=== PATIENT | female | born 2000 | race Caucasian/White ===

== ENCOUNTER 2023-12-12 07:24 | Inpatient (IN) | payer MEDICAID, SELFPAY ==
[2023-12-12] VITALS (35 sets, daily range): BP systolic 99–139; BP diastolic 54–95; PULSE 53–82; BMI 32.8
[2023-12-12 08:10] LABS: Basophils % 0.3 %; Eosinophils # 0.1 10^3/uL (0.0-0.8); Eosinophils % 0.6 %; Lymphocytes # 2.7 10^3/uL (0.8-4.8); Lymphocytes % 23.7 %; Mean Corpuscular HGB Conc 30.7 g/dL (30-55); Mean Corpuscular Hemoglobin 23.4 pg (27-33); Mean Corpuscular Volume 76.3 fl (85-98); Mean Platelet Volume 10.8 fL (7.4-10.4); Monocytes # 0.6 10^3/uL (0.2-0.9); Monocytes % 4.9 %; Neutrophils # 7.91 10^3/uL (1.8-7.7); Neutrophils % 70.1 %; Nucleated Red Blood Cells % 0 %; Platelet Count 248 10^3/cmm (157-399); Red Blood Count 3.67 10^6/uL (3.85-5.65); White Blood Count 11.28 10^3/uL (3.29-11.43)
[2023-12-12] MEDS: miSOPROStol 100 mcg tablet 25 MCG VAGINAL (08:22)
--- NOTE | 2023-12-12 09:10 | PM.OBGYHP ---
Providers/Chief Complaint Admitting Physician: Desmond Jacobsen MD Primary AIRPORT TOWER CONTROLLER: Desmond Jacobsen MD Primary Care Provider: Bonita Eaton MD Chief Complaint: induction HPI AIRPORT TOWER CONTROLLER History of Present Illness 23 y.o. A2 EDC December 19, 2023 at 39 w 0 d no complications admitted for elective induction of labor no c/o + active movements pobhx: x one IUFD mono/mono twins at 12 weeks, November 2022 Failed Cytotec induction, required D&C Present Details : 3 Para: 1 Labs Rubella: Immune RPR: Negative GBS: Positive Medications/Allergies Home Medications Medication Instructions Recorded Confirmed Last Taken Type famotidine 20 mg tablet 20 mg PO BID PRN heartburn #30 tabs 10/23/23 12/09/23 11/21/23 Rx Allergies Allergy/AdvReac Type Severity Reaction Status Date / Time aspirin Allergy Unknown Verified 12/09/23 13:57 lactose Allergy upset Verified 12/09/23 13:57 stomach, diarrhea, vomiting PFSH AIRPORT TOWER CONTROLLER PFSH: Medical History No pertinent past medical history neghx: htn,dm,thyroid,dvt/pe,herpes ---denies partner with herpes Surgical History No pertinent past surgical history Family History Family/Other Colon cancer Maternal Aunt-- dx age unknown Grandmother Diabetes Maternal Hypertension Paternal Mother Ovarian cancer dx age late 20's; uncertain of events History History History 3 Term 1 0 Miscarriages/Ectopic 2 Living Children 1 Care BIGG Calculator Estimated Delivery Date Method Current WG Current Estimate 12/19/23 Ultrasound #1 39w 0d Other Estimates 12/21/23 Ultrasound #2 38w 5d Vitals/I&O/Wt Last Vital Signs Pulse 65 12/12/23 17:09 BP 125/81 12/12/23 17:09 O2 Del Method Room Air 12/12/23 07:00 12/12/23 12/12/23 12/12/23 06:59 14:59 22:59 Intake Total 53.017 / 53.017 4.667 / 57.684 Balance 53.017 / 53.017 4.667 / 57.684 Weight last 48 hrs Weight 197 lb Physical Exam Narrative: weight 195 lbs; 5?5 comfortable, awake, alert VS normal Lungs: clear Cor: RRR Abd: nontender FH 37 cm, cephalic FHTs normal Cervix: 1 cm / 25% / -3 / posterior Ext: no edema External monitor: heart tracing good variability, + accelerations Data 12/12/23 07:45 Results Labs OB ([facility]): Obstetrics US 12/02/23 Obstetrics US/Biophysical Profile 01/10/21 Blood Type AB Positive 12/12/23 Antibody Screen Negative 12/12/23 Hct 28.0 % (36-47) L 12/12/23 Hgb 8.60 g/dL (11.27-16.99) L 12/12/23 Rho(D) Type Rh positive 12/12/23 Plt Count 248 10^3/cmm (157-399) 12/12/23 Hep Bs Antigen Non-reactive (Nonreactive) 05/27/23 Hepatitis C Antibody Non-reactive (Nonreactive) 05/27/23 Rubella IgG Antibody 34.0 IU/mL (0.0-10.0) H 05/27/23 RPR Nonreactive (Nonreactive) 05/27/23 HIV 1&2 Ab & HIV 1 Ag Non-reactive (Non-Reactiv) 05/27/23 TSH 0.19 uIU/mL (0.27-4.20) L 11/21/22 C.trachomatis RNA (TMA) Not detected (NOT DETECTED) 09/17/23 N.gonorrhoeae RNA (TMA) Not detected (NOT DETECTED) 09/17/23 Chlamydia/GC Comment See note 09/17/23 Cystic Fibrosis Screen Negative 08/04/20 Glucose 1 Hr 50 gm 90 mg/dL (85-140) 10/02/23 Gest Glucose Tolerance 78 mg/dL 12/08/20 Uric Acid 5.3 mg/dL (2.4-5.7) 03/07/21 Ser , Semi-Qnt 1008.00 mIU/mL 04/18/23 HCG, Qual Positive (Negative) H 04/18/23 Urine Opiates Screen Negative ng/mL (Negative) 05/27/23 Ur Barbiturates Screen Negative ng/mL (Negative) 05/27/23 Ur Phencyclidine Scrn Negative ng/mL (Negative) 05/27/23 Ur Amphetamines Screen Negative ng/mL (Negative) 05/27/23 U Benzodiazepines Scrn Negative ng/mL (Negative) 05/27/23 Urine Cocaine Screen Negative ng/mL (Negative) 05/27/23 U Marijuana (THC) Screen Negative ng/mL (Negative) 05/27/23 Micro Urine Specimen 11/11/23 A&P Assessment and plan (1) Encounter for induction of labor: 39 w 0 d Admitted for elective induction of labor Fetus reassuring Plan Cytotec 25 ug intravaginal h/o x one (2) Group B streptococcal bacteriuria: plan start antibiotics for + GBS colonization Attestations Medical Necessity Statement*: patient at 39 w 0d, admitted for induction of labor Coding Level of Care Code Acute Code for Chg Fwd Diagnoses Encounter for induction of labor Z34.90 Group B streptococcal bacteriuria R82.71 Time Spent (min) 30
--- NOTE | 2023-12-12 12:20 | P.PN_ITS ---
PRODUCT PROMOTER SALES PERSON Subjective 2 Subjective: Interval history: Feeling mild UCs Fetus reassuring Cervix: 1 cm / 50% / -3 / posterior Plan start Pitocin per protocol Labor: Station: -3 Amniotic Membrane Status: Intact Monitor Mode: External Contraction Pattern: Regular Vitals/I&O/Wt Last Vital Signs Pulse 60 12/12/23 17:38 BP 114/73 12/12/23 17:38 O2 Del Method Room Air 12/12/23 07:00 12/12/23 12/12/23 12/12/23 06:59 14:59 22:59 Intake Total 53.017 / 53.017 4.667 / 57.684 Balance 53.017 / 53.017 4.667 / 57.684 Weight last 48 hrs Weight 197 lb Data 12/12/23 07:45 A&P Assessment and plan (1) Encounter for induction of labor: (2) Group B streptococcal bacteriuria: Attestations 2 Medical Necessity Statement*: patient at 39 w 0 d, admitted for induction of labor Coding Level of Care Code Acute Code for Chg Fwd Diagnoses Encounter for induction of labor Z34.90 Group B streptococcal bacteriuria R82.71 Time Spent (min) 20
[2023-12-12] MEDS: ampicillin 2,000 MG in sodium chloride 0.9% (plus) 50 ML 100 MG IV (12:36)
[2023-12-12] MEDS: dextrose 5%-lactated ringers 1,000 ML 125 ML IV (12:38)
[2023-12-12] MEDS: oxytocin 30 UNIT/500 ML BAG IV (13:09)
[2023-12-12] MEDS: ampicillin 1,000 MG in sodium chloride 0.9% (plus) 50 ML 100 MG IV ×2 (16:26→21:09)
[2023-12-12] MEDS: acetaminophen 325 mg Tablet 650 MG PO (16:39)
[2023-12-12] MEDS: dextrose 5%-lactated ringers 1,000 ML 112 ML IV (21:42)
[2023-12-13] VITALS (47 sets, daily range): BP systolic 101–141; BP diastolic 51–92; PULSE 54–94; RESP 14–16; TEMP 36.4–36.8; O2SAT 83–100; BMI 32.8
[2023-12-13] MEDS: acetaminophen 325 mg Tablet 650 MG PO ×2 (00:28→13:00)
[2023-12-13] MEDS: ampicillin 1,000 MG in sodium chloride 0.9% (plus) 50 ML 100 MG IV ×2 (00:29→04:41)
[2023-12-13] MEDS: ondansetron 2 mg/ML SDV 2 mL 4 MG IVP (01:08)
[2023-12-13] MEDS: lactated ringers 1,000 ML 999 ML IV (03:18)
--- NOTE | 2023-12-13 03:31 | P.ANESASSM_ITS ---
Pre-Anesthetic Assessment Height/Weight: Height 1.65 m Weight 89.358 kg Pulse BP Pulse Ox O2 Del Method 73 134/85 100 Room Air 12/13/23 03:27 12/13/23 03:25 12/13/23 03:27 12/12/23 07:00 Preop Diagnosis: Term labor NAVEEN Was Beta Ed taken within 24 hours: N/A Was Clonidine taken within 24 hours: N/A Social No alcohol and No tobacco Exam alert, oriented x 3, clear to auscultation bilaterally and regular rate & rhythm Airway Submandibular: within normal limits Cervical ROM: within normal limits Mallampati: Class II Dentition: full History/ROS No significant history except as noted and No significant complaints Pulmonary None reported CV/HEM Anemia None reported Hepatic None reported GI None reported Metabolic None reported Musc/skel None reported Neuropsych None reported Anesthetic Plan ASA status: 2 Anesthesia: Anesthesia Evaluation and Regional (specify below) (NAVEEN) Risk of > 500 ml blood loss (7ml/kg in children): No Medications/Allergies Home Medications Medication Instructions Recorded Confirmed Last Taken Type famotidine 20 mg tablet 20 mg PO BID PRN heartburn #30 tabs 10/23/23 12/09/23 11/21/23 Rx Allergies Allergy/AdvReac Type Severity Reaction Status Date / Time aspirin Allergy Unknown Verified 12/09/23 13:57 lactose Allergy upset Verified 12/09/23 13:57 stomach, diarrhea, vomiting Current Medications Generic Name Dose Route Start Last Admin Trade Name Freq PRN Reason Stop Dose Admin Acetaminophen 650 mg 12/12/23 07:55 12/13/23 00:28 Acetaminophen 325 Mg Tablet PO 650 mg Q6H PRN Administration Mild pain or temp > 100.4 Dextrose/Lactated Ringer's 1,000 mls @ 125 mls/hr 12/12/23 08:00 12/13/23 02:00 Dextrose 5%-Lactated Ringers IV 125 mls/hr .Q8H YOVANA Infusion Ampicillin Sodium 1,000 mg/ 50 mls @ 100 mls/hr 12/12/23 16:30 12/13/23 00:59 Sodium Chloride IV Infused Q4H YOVANA Infusion Protocol Oxytocin 30 unit in 500 mls @ 1 mls/hr 12/12/23 12:30 12/12/23 23:48 Pitocin IV 17 milliunit/min .Q24H YOVANA 17 mls/hr Titration Protocol 1 MILLIUNIT/MIN Ondansetron HCl 4 mg 12/12/23 07:55 12/13/23 01:08 Ondansetron 2 Mg/Ml Sdv 2 Ml IVP 4 mg Q4H PRN Administration NAUSEA AND VOMITING PFSH Anesthesia Medical History No pertinent past medical history neghx: htn,dm,thyroid,dvt/pe,herpes ---denies partner with herpes Surgical History No pertinent past surgical history Family History Family/Other Colon cancer Maternal Aunt-- dx age unknown Grandmother Diabetes Maternal Hypertension Paternal Mother Ovarian cancer dx age late 20's; uncertain of events Female Reproductive History : 3 Para: 0 Data Anesthesia 12/12/23 07:45 Short CBC 12/12/23 Range/Units 07:45 WBC 11.28 (3.29-11.43) 10^3/uL Hgb 8.60 L (11.27-16.99) g/dL Hct 28.0 L (36-47) % MCV 76.3 L (85-98) fl Plt Count 248 (157-399) 10^3/cmm Neut % (Auto) 70.1 % Neut # (Auto) 7.91 H (1.8-7.7) 10^3/uL Blood Bank 12/12/23 07:45 Blood Type AB Positive Rho(D) Type Rh positive Antibody Screen Negative Cardiac Studies: 2 No Data to Display
--- NOTE | 2023-12-13 03:36 | ANES.PROC ---
Anesthesia Procedures Procedure/Date: 12/13/23 Epidural: Time Out Performed: Yes Consents Signed: Procedure Consent Consent: requested by attending/covering physician, from patient, risks and benefits reviewed and patient agrees to proceed Lumbar Level: L2-L3 Epidural position: sitting Epidural procedure: sterile prep of area, 1% lidocaine to numb the area, 18 g needle, negative for paresthesia passed, neg for paresthesia, test dose given, 1.5% xylocaine 1:200k epi (5cc), 0.2% Ropivacaine bolus ml (4cc and Fentanyl 100mcg), placed PCEA, no systemic response, sterile dressing applied, L.U.D. no apparent complications and 0.2% Ropiavacaine @ mls/hr (10cc/hour) Other Information: Pt tolerated well
[2023-12-13] MEDS: ROPivacaine syringe 100 MG/50 ML SYRINGE 10 MG EPIDURAL (03:41)
--- NOTE | 2023-12-13 05:20 | PM.DELIVERY ---
Delivery Note: Date of delivery: December 13, 2023 Pre-delivery diagnoses: 39 w 0 d induction of labor Post-delivery diagnoses: 39 w 0 d induction of labor vaginal delivery Procedure: induction of labor vaginal delivery Op report anesthesia: Epidural Delivering Physician: Desmond Jacobsen MD Estimated blood loss (mL): 400 Findings: , vigorous male cord gases and blood obtained normal placenta and cord no episiotomy or lacerations no complications EBL: 400 cc Pre-Delivery Course: patient received one dose of cytotec 25 ug intravaginally then pitocin per protocol had normal labor course Delivery: vaginal Post-Delivery Status: Good History History History 3 Term 1 0 Miscarriages/Ectopic 2 Living Children 1 A&P Assessment and plan (1) Vaginal delivery: Coding Level of Care Code Acute Code for Chg Fwd Diagnoses Vaginal delivery O80 Time Spent (min) 60
[2023-12-13] MEDS: oxytocin 30 UNIT/500 ML BAG 300 UNIT IV (06:05)
[2023-12-13] MEDS: hyDROXYzine 25 mg Capsule 50 MG PO (08:19)
[2023-12-13] MEDS: lanolin oint 7 gm 1 APPLIC TOPICAL (08:29)
[2023-12-13] MEDS: docusate sodium 100 mg Capsule PO ×2 (08:30→20:14)
[2023-12-13] MEDS: PRENATAL VIT NO.130/IRON/FOLIC 1 EACH TABLET PO (08:30)
[2023-12-13] MEDS: ibuprofen 800 mg tablet PO ×3 (08:30→20:14)
[2023-12-13 17:31] LABS: Hematocrit 23.1 % (36-47); Mean Corpuscular HGB Conc 31.2 g/dL (30-55); Mean Corpuscular Hemoglobin 23.9 pg (27-33); Mean Corpuscular Volume 76.7 fl (85-98); Mean Platelet Volume 10.5 fL (7.4-10.4); Platelet Count 197 10^3/cmm (157-399); Red Blood Count 3.01 10^6/uL (3.85-5.65); Red Cell Distribution Width 15.9 % (12.1-15.1); White Blood Count 10.82 10^3/uL (3.29-11.43)
--- NOTE | 2023-12-14 07:00 | ANE.PACU2 ---
Inpatient post-anesthesia follow up: Airway intact: Yes Vital signs: Temperature 98.2 F Pulse Rate 81 Respiratory Rate 17 Blood Pressure 127/78 Pulse Oximetry 99 Oxygen Delivery Me thod Room Air Oxygen Flow Rate Fraction of Inspir ed Oxygen Hydration adequate: Yes Nausea and vomiting: No Pain level: 1 Mental status: Baseline Epidural Start/End: Epidural Start Date: 12/13/23 Epidural Start Time: 03:09 Epidural End Date: 12/13/23 Epidural End Time: 05:50
[2023-12-14 09:16] VITALS: BP 116/72; PULSE 81; RESP 16; TEMP 36.8
[2023-12-14] MEDS: PRENATAL VIT NO.130/IRON/FOLIC 1 EACH TABLET PO (09:17)
[2023-12-14] MEDS: docusate sodium 100 mg Capsule PO (09:17)
[2023-12-14] MEDS: ibuprofen 800 mg tablet PO (09:17)
--- NOTE | 2023-12-14 13:04 | PM.OBGYDC ---
Discharge Providers RESTAURANT SERVER Date of Admission: 12/12/23 07:24 Date of Discharge: 12/14/23 Attending Provider at Admission: Desmond Jacobsen MD Attending Provider at Discharge: Ace Mauricio MD Primary RESTAURANT SERVER: Desmond Jacobsen MD Primary Care Provider: Bonita Eaton MD Diagnoses at Discharge Discharge Diagnosis (1) Vaginal delivery: Status: Acute Reason for Visit Reason for Visit: induction Hospital Course Hospital Course Ms. Smith is a 23 year old established patient with LMP of unknown, BIGG 12/19/23. Admitted to labor and delivery for elective induction. She progressed to have a spontaneous vaginal delivery without complications. She is ambulating without difficulty. Tolerating diet well. Patient refers she is planning a bilateral salpingectomy for contraception. She was advised to go to the clinic to schedule for the procedure. She was counseled regarding pelvic rest for 6 weeks (no sex, no tampons, no vaginal douches). Return to the emergency room if any fever, increased bleeding or pain. Information Peripartum Data: Infant Delivery Method: Vaginal Physical Exam Narrative: GA; alert and oriented x 3 HEENT: normal Breasts: engorged Nipples - skin intact Lungs; clear to auscultation Heart: regular rhythm, no murmurs. Abd: Appropriately tender. BS+. Uterine fundus below umbilicus. No Fundal Tenderness. Perineum: normal lochia. Extremities: no edema, no cyanosis, no tenderness. Urinary Catheter Management: Dougherty: Cath Placed During This Visit: yes, but has since been removed by the nurse Reason for Continuing Indwelling Catheter: Decision to DC Catheter Urinary Catheter Date of Insertion: 12/13/23 Urinary Catheter Time of Insertion: 04:02 Date Urinary Catheter Removed: 12/13/23 Time Urinary Catheter Discontinued: 05:10 History History History 3 Term 1 0 Miscarriages/Ectopic 2 Living Children 1 Discharge Data Studies Completed and Pending Laboratory Results WBC 10.82 10^3/uL (3.29-11.43) 12/13/23 17:21 RBC 3.01 10^6/uL (3.85-5.65) L 12/13/23 17:21 Hgb 7.20 g/dL (11.27-16.99) L 12/13/23 17:21 Hct 23.1 % (36-47) L 12/13/23 17:21 MCV 76.7 fl (85-98) L 12/13/23 17:21 MCH 23.9 pg (27-33) L 12/13/23 17:21 MCHC 31.2 g/dL (30-55) 12/13/23 17:21 RDW 15.9 % (12.1-15.1) H 12/13/23 17:21 Plt Count 197 10^3/cmm (157-399) 12/13/23 17:21 MPV 10.5 fL (7.4-10.4) H 12/13/23 17:21 Neut % (Auto) 70.1 % 12/12/23 07:45 Lymph % (Auto) 23.7 % 12/12/23 07:45 Glenn % (Auto) 4.9 % 12/12/23 07:45 Eos % (Auto) 0.6 % 12/12/23 07:45 Baso % (Auto) 0.3 % 12/12/23 07:45 Neut # (Auto) 7.91 10^3/uL (1.8-7.7) H 12/12/23 07:45 Lymph # (Auto) 2.7 10^3/uL (0.8-4.8) 12/12/23 07:45 Glenn # (Auto) 0.6 10^3/uL (0.2-0.9) 12/12/23 07:45 Eos # (Auto) 0.1 10^3/uL (0.0-0.8) 12/12/23 07:45 Baso # (Auto) 0.0 10^3/uL (0.0-0.1) 12/12/23 07:45 Nucleated RBC % (auto) 0 % 12/12/23 07:45 Nucleated RBCs # 0.0 /100WBC 12/12/23 07:45 Blood Type AB Positive 12/12/23 07:45 Rho(D) Type Rh positive 12/12/23 07:45 Antibody Screen Negative 12/12/23 07:45 Vitals Last Vital Signs Temp 98.2 F 12/14/23 09:16 Pulse 81 12/14/23 09:16 Resp 16 12/14/23 09:16 BP 116/72 12/14/23 09:16 Pulse Ox 99 12/13/23 22:06 O2 Del Method Room Air 12/14/23 09:16 Results Labs OB ([facility]): Obstetrics US 12/02/23 Obstetrics US/Biophysical Profile 01/10/21 Blood Type AB Positive 12/12/23 Antibody Screen Negative 12/12/23 Hct 23.1 % (36-47) L 12/13/23 Hgb 7.20 g/dL (11.27-16.99) L 12/13/23 Rho(D) Type Rh positive 12/12/23 Plt Count 197 10^3/cmm (157-399) 12/13/23 Hep Bs Antigen Non-reactive (Nonreactive) 05/27/23 Hepatitis C Antibody Non-reactive (Nonreactive) 05/27/23 Rubella IgG Antibody 34.0 IU/mL (0.0-10.0) H 05/27/23 RPR Nonreactive (Nonreactive) 05/27/23 HIV 1&2 Ab & HIV 1 Ag Non-reactive (Non-Reactiv) 05/27/23 TSH 0.19 uIU/mL (0.27-4.20) L 11/21/22 C.trachomatis RNA (TMA) Not detected (NOT DETECTED) 09/17/23 N.gonorrhoeae RNA (TMA) Not detected (NOT DETECTED) 09/17/23 Chlamydia/GC Comment See note 09/17/23 Cystic Fibrosis Screen Negative 08/04/20 Glucose 1 Hr 50 gm 90 mg/dL (85-140) 10/02/23 Gest Glucose Tolerance 78 mg/dL 12/08/20 Uric Acid 5.3 mg/dL (2.4-5.7) 03/07/21 Ser , Semi-Qnt 1008.00 mIU/mL 04/18/23 HCG, Qual Positive (Negative) H 04/18/23 Urine Opiates Screen Negative ng/mL (Negative) 05/27/23 Ur Barbiturates Screen Negative ng/mL (Negative) 05/27/23 Ur Phencyclidine Scrn Negative ng/mL (Negative) 05/27/23 Ur Amphetamines Screen Negative ng/mL (Negative) 05/27/23 U Benzodiazepines Scrn Negative ng/mL (Negative) 05/27/23 Urine Cocaine Screen Negative ng/mL (Negative) 05/27/23 U Marijuana (THC) Screen Negative ng/mL (Negative) 05/27/23 Micro Urine Specimen 11/11/23 Discharge Plan Discharge Patient Disposition: Home Condition: Stable Prescriptions: New acetaminophen 325 mg capsule 325 mg PO Q4H PRN (Reason: fever or pain) Qty: 60 0RF docusate sodium [Colace] 100 mg capsule 100 mg PO BID Qty: 60 0RF ferrous sulfate [Iron (ferrous sulfate)] 325 mg (65 mg iron) tablet 325 mg PO BID Qty: 60 0RF Continued famotidine 20 mg tablet 20 mg PO BID PRN (Reason: heartburn) Qty: 30 3RF Discharge Orders: Discharge Order (Routine); Ordered 12/14/23 Ordered By: Ace Mauricio Referrals: Desmond Jacobsen MD [Physician] - 6 Weeks Discharge Diet: Usual diet Discharge Activity: Limit activity as instructed Patient Instructions: Depression (DC), Opioid Safety (DC), Preeclampsia and Eclampsia After Delivery (GEN), Hemorrhage (DC), OB Discharge Report, OB Food/Drug Interaction Guide, Opioid Safety, OB Home Care, OB Vaginal Deliveries - [facility], Abnormal Bleeding Activity Restrictions/Additional Instructions: 1. Please call [facility] on next working day to make your appointment in 6 weeks. 2. Please stay home until you come back to the clinic on first post-hospatilization check up. 3. Please follow instructions on your medications CAREFULLY. 4. If you have abdominal incision, do not cover it unless dressing is necessary because of drainage. OK to shower, but avoid bath. Leave steri-strips until they fall off. If they are still on one week after surgery, you may remove them. 5. If you had vaginal surgery or vaginal repair, Dr. Mauricio may instruct you to take SITZ bath. 6. Yellow, blood tinged odorous vaginal discharge is usually normal after hysterectomy or vaginal surgeries. 7. No SEXUAL INTERCOURSE, tampons, or douches until you are completely released from the post-operative care. 8. Avoid constipation by eating right and maybe using some Metamucil or Milk of Magnesia. 9. All prescription refills are given during the working hours. Please do no wait till it runs out. Call the clinic at [phone] before your medication runs out. The clinic will get in touch with your doctor to prescribe medications if necessary. 10. Please remain within 40 mile radius from our hospital because emergencies do happen now and then during the post-operative period. 11. If you have stairs at home, take one step at a time slowly and minimize the number of trips. It helps to stay in one floor for the next few days. No lifting except what you can lift by one hand until you are released from the post-operative care. 12. Driving is discouraged until you are well healed. It may be 3-4 weeks before you feel strong enough to drive. You should be able to turn and look through the rear window without pain and you should be able to push the brake pedal very hard without pain before you drive. No fast rules, but SAFETY should be your primary concern. DO NOT drive if you are on sedating medications such as narcotics. 13. Call the clinic (during working hours) to make urgent appointment or go to the Emergency room, if any of the following occurs: i. Vaginal bleeding becomes heavy, more than a period. ii. Incision becomes red and sore, or drains pus. iii. Your TEMPERATURE is over 100.4F or you have chill. iv. IV site becomes red and swollen (a little ``knot?? is usually OK) v. Persistent nausea and vomiting vi. Persistent constipation or diarrhea vii. Rash or allergic reaction to medications. Discharge Attestations RESTAURANT SERVER Time Spent in Discharge Care*: greater than 30 min Coding Level of Care Code Acute Code for Chg Fwd Diagnoses Vaginal delivery O80
[2023-12-14 14:02] VITALS: BP 127/78; PULSE 81; RESP 17; TEMP 36.8; O2SAT 99
[2023-12-14 14:08] VITALS: BP 127/78; PULSE 81; RESP 17; TEMP 36.8; O2SAT 99
== END 2023-12-14 14:08 | disposition home or self-care (01) | DRG 807 ==
LOC: OPOB 07:24 → OBGYN 07:28
PROVIDERS: Admitting Provider Obstetrics & Gynecology; PCP Family Medicine; Visit Provider Obstetrics & Gynecology
DX: O99.824 Streptococcus B carrier state complicating childbirth (principal); Z37.0 Single live birth; Z3A.39 39 weeks gestation of pregnancy
CPT/HCPCS: 36415; 51702; 59025; 59409; 85025; 85027; 86850; 86900; 96374; J0290; J2405; J2590; J2795; J3010; J7120; J7121; J9999